=== PATIENT | male | born 1935 | race Caucasian/White ===

== ENCOUNTER 2022-06-24 08:15 | Day surgery (SDC) | payer MEDICARE ==
[2022-06-20 16:05] VITALS: BMI 27.6
[~2022-06-24 08:15] MED LIST: EPINEPHrine 0.3 MG in Ophthalmic Irrigation Solution 500 ML IRR SCH
[2022-06-24] MEDS ORDERED: Cyclopentolate 1% Opth Drop 2 ML BOT ONE (08:34)
[2022-06-24] MEDS ORDERED: Phenylephrine 2.5% Ophth Soln 5 ML BOT ONE (08:34)
[2022-06-24] MEDS ORDERED: PROPOFOL 20 ML ONE (09:28)
[2022-06-24] MEDS ORDERED: fentaNYL PF 100 MCG/2 ML SYRINGE ONE (09:28)
[2022-06-24] MEDS ORDERED: Lidocaine 4% PF 5 ML AMP ONE (09:45)
[2022-06-24] MEDS ORDERED: Lidocaine 1% PF 5 ML VIAL ONE (09:45)
[2022-06-24] MEDS ORDERED: Triamcinolone 40 MG/ML VIAL ONE (09:45)
[2022-06-24] MEDS ORDERED: CEFAZOLIN 1 GM VIAL ONE (09:45)
[2022-06-24] MEDS ORDERED: Maxitrol 0.1% Opth Oint 3.5 GM TUBE ONE (09:45)
[2022-06-24] MEDS ORDERED: Bupivacaine 0.75% 10 ML VIAL ONE (09:45)
[2022-06-24] MEDS ORDERED: Indocyanine Green 25 MG/10 ML VIAL ONE (09:45)
== END 2022-06-24 11:25 | disposition home or self-care (01) ==
LOC: SDC 08:15
PROVIDERS: ATTEND Ophthalmology Retina Specialist
PROC: 08T43ZZ Resection of Right Vitreous, Percutaneous Approach (ICD-10-PCS; principal; 2022-06-24)
PROC: 08NE3ZZ Release Right Retina, Percutaneous Approach (ICD-10-PCS; 2022-06-24)
DX: H35.371 Puckering of macula, right eye (principal); I10 Essential (primary) hypertension; G47.30 Sleep apnea, unspecified; E03.9 Hypothyroidism, unspecified; Z87.891 Personal history of nicotine dependence; Z79.890 Hormone replacement therapy; Z79.899 Other long term (current) drug therapy; Z98.41 Cataract extraction status, right eye; Z98.42 Cataract extraction status, left eye; Z96.1 Presence of intraocular lens
CPT/HCPCS: J0171; J0690; J2704; J3301; J3490

== ENCOUNTER 2024-05-10 07:10 | Day surgery (SDC) | payer MEDICARE ==
[2024-05-09 12:30] VITALS: BMI 27.6
[2024-05-10] MEDS ORDERED: Cyclopentolate 1% Opth Drop 2 ML BOT ONE (07:43)
[2024-05-10] MEDS ORDERED: PHENYLephrine 2.5% Ophth Soln 15 ml Bottle ONE (07:43)
[2024-05-10] MEDS ORDERED: fentaNYL 50 mcg/mL 1 mL Vial ONE (09:09)
[2024-05-10] MEDS ORDERED: PROPOFOL 20 ML ONE (09:24)
[2024-05-10] MEDS ORDERED: Indocyanine Green 25 MG/10 ML VIAL ONE (09:27)
[2024-05-10] MEDS ORDERED: Triamcinolone 40 MG/ML VIAL ONE (09:27)
[2024-05-10] MEDS ORDERED: Lidocaine 4% PF 5 ML AMP ONE (09:27)
[2024-05-10] MEDS ORDERED: Bupivacaine 0.75% 10 ML VIAL ONE (09:27)
[2024-05-10] MEDS ORDERED: Lidocaine 1% PF 5 ML VIAL ONE (09:27)
[2024-05-10] MEDS ORDERED: CEFAZOLIN 1 GM VIAL ONE (09:27)
[2024-05-10] MEDS ORDERED: Maxitrol 0.1% Opth Oint 3.5 GM TUBE ONE (09:27)
== END 2024-05-10 10:40 | disposition home or self-care (01) ==
LOC: SDC 07:10
PROVIDERS: ATTEND Ophthalmology Retina Specialist
PROC: 08T53ZZ Resection of Left Vitreous, Percutaneous Approach (ICD-10-PCS; principal; 2024-05-10)
DX: H35.372 Puckering of macula, left eye (principal)
CPT/HCPCS: 67041; J0171; J0690; J2704; J3010; J3301; J3490